=== PATIENT | female | born 1960 | race Caucasian/White ===

== ENCOUNTER 2022-06-01 12:18 | Emergency (ER) | payer MEDICARE, SELFPAY ==
[2022-06-01 12:21] VITALS: BP 109/61; PULSE 81; RESP 17; TEMP 36.1; O2SAT 94; BMI 32.8
--- NOTE | 2022-06-01 13:04 | EX.ED.DYSGE1 ---
HPI History of Present Illness Chief Complaint: Abn Labs Detail of Chief Complaint: low calcium Informant: patient Narrative Narrative: Patient sent according to her because of low calcium levels that were drawn 3 days ago. The patient's PCP tried to call her over the weekend when these results are available but were unable to discuss with her until today Wednesday morning, so she presents to the ER at their advice. She states she has been having some tingling in her hands but otherwise she feels fine. She states the blood work was done on Wednesday routinely as preparation for a routine outpatient visit today Wednesday. She denies all other ROS. She states she is on furosemide, she thinks for her blood pressure. She does not have major lower extremity edema issues although her ankles are a little swollen today. She does not have a history of heart problems or congestive heart failure. [facility] Medical History Diabetes type 2, controlled High blood pressure High cholesterol Home Medications Quinapril Hcl [Accupril] 10 mg PO BID 02/14/16 [History Last Taken Unknown] albuterol sulfate 2.5 mg/3 mL (0.083 %) solution for nebulization 2.5 mg inhalation Q4H PRN PRN Bronchodialation 02/14/16 [History Last Taken Unknown] albuterol sulfate 90 mcg/actuation aerosol inhaler (Ventolin HFA) 2 puff inhalation Q6H PRN PRN Bronchodialation 02/14/16 [History Last Taken Unknown] cholecalciferol (vitamin D3) 25 mcg (1,000 unit) chewable tablet 1,000 unit PO 02/14/16 [History Last Taken Unknown] hydroxyzine pamoate 50 mg capsule (Vistaril) 50 mg PO TID PRN PRN Anxiety 02/14/16 [History Last Taken Unknown] levothyroxine 150 mcg tablet 150 mcg PO DAILY 02/14/16 [History Last Taken Unknown] metronidazole 1 % topical gel (Metrogel) 1 applic topical BID 02/14/16 [History Last Taken Unknown] pravastatin 40 mg tablet 40 mg PO DAILY 02/14/16 [History Last Taken Unknown] sertraline 100 mg tablet 100 mg PO DAILY 02/14/16 [History Last Taken Unknown] trazodone 100 mg tablet 100 mg PO QHS 02/14/16 [History Last Taken Unknown] triamcinolone acetonide 0.1 % dental paste 1 applic topical BID 02/14/16 [History Last Taken Unknown] fluticasone fur. 100 mcg-umeclid 62.5 mcg-vilant 25 mcg inhalat.powder (Trelegy Ellipta) inhalation 06/01/22 [History Last Taken Unknown] Allergy/AdvReac Type Severity Reaction Status Date / Time No Known Allergies Allergy Verified 06/01/22 12:19 Surgical History (Updated 06/01/22 @ 12:53 by Jovani Lovelace) H/O thyroidectomy Social History Smoking Status: Former smoker ROS ROS ED Constitutional Constitutional ED: Denies chills or fever(s) Eyes Eyes: Denies change in vision or diplopia ENT ENT ED: Denies rhinorrhea or sore throat Cardiovascular Cardiovascular: Denies chest pain or palpitations Respiratory/Chest Respiratory/Chest: Denies cough or dyspnea Gastrointestinal Gastrointestinal: Denies abdominal pain, diarrhea, nausea or vomiting Genitourinary Genitourinary ED: Denies dysuria or hematuria Musculoskeletal Musculoskeletal: Denies back pain, muscle cramps, muscle spasms, muscle weakness, myalgias or neck pain Integumentary Denies abscess or rash Neurologic Neurologic: Reports paresthesias RUE and LUE; Denies headache(s) or weakness Psychiatric Psychiatric: Denies anxiety or suicidal thoughts EXAM Physical Exam Const Vital Signs: 06/01/22 12:21 06/01/22 12:55 Temperature 96.9 F L Temperature Source Temporal Pulse Rate 81 Respiratory Rate 17 Respiratory Effort Normal Respiratory Pattern Normal Blood Pressure 109/61 Blood Pressure Mean 77 Pulse Ox 94 Oxygen Delivery Method Room Air Positive well nourished and well developed Constitutional Narrative: Well-appearing. Conversive in full senses. Normal reflexes. No clonus. General Appearance ED: well developed and NAD HEENT Reports moist mucous membranes normocephalic and atraumatic Eyes PERRL and EOMs intact bilaterally Neck full ROM and supple Resp normal respiratory effort and clear to auscultation bilaterally Cardio regular rate, regular rhythm and no murmurs GI non-tender and non-distended Auscultation: normoactive bowel sounds Palpation: soft Back/Spine no CVA tenderness General Back: other FROM Extremity normal to inspection General Extremety ED: Negative for edema, pulses abnormal or tenderness General Extremity: Negative for edema or pulses abnormal Neuro oriented x3, CN's II-XII intact bilaterally and no sensory deficits noted Sensorium / Orientation: awake and alert Motor Exam: strength 5/5 throughout Skin no rashes or lesions noted and no wounds MDM MDM MDM Narrative Medical decision making narrative: I did perform a basic metabolic panel it does show a a calcium of 6.1. I did give the patient an infusion of calcium gluconate 2 g while she was waiting for this. She feels well afterwards. I discussed with Dr. Lozano who was on-call for her PCP Dr. Mills, she looked up some records and did verify that the patient is on furosemide 20 mg daily, this was because at 1 point she had some dyspnea. She had a vitamin D level that looked okay, but she does have a history of low calcium levels. 6 months ago it was 7.0, 6 months prior to that it was 6.8, today outpatient 5.8 and 6.1 here. Patient apparently has a history of hypothyroidism and hypoparathyroidism, the latter of which would explain her hypocalcemia. Dr. Lozano agrees that this is a known problem, and sees in the documentation that she was sent here to get an infusion of calcium given the low level, and they will follow-up with her as an outpatient regarding her hormone issues. Lab Data Attestation: I reviewed the patient's lab results. Labs: Laboratory Results - last 24 hr 06/01/22 13:11 Sodium 138 Potassium 3.8 Chloride 102 Carbon Dioxide 25.0 Anion Gap 11 BUN 10 Creatinine 0.54 L Estim Creat Clear Calc 80.47 Est GFR (MDRD) Af Amer 147 Est GFR (MDRD) Non-Af 122 BUN/Creatinine Ratio 18.7 Glucose 95 Calcium 6.1 L* Discharge Plan Triage Chief Complaint: Abn Labs ED Provider: Lokesh Lind Dx/Rx/DC Orders Clinical Impression: Hypocalcemia, Hypoparathyroidism Instructions: ED Hypocalcemia (Adult) Prescriptions: No Action albuterol sulfate 2.5 MG/3 ML Vial.Neb. 2.5 mg inhalation Q4H PRN PRN (Reason: Bronchodialation) pravastatin 40 MG tablet 40 mg PO DAILY sertraline 100 MG tablet 100 mg PO DAILY hydroxyzine pamoate [Vistaril] 50 MG capsule 50 mg PO TID PRN PRN (Reason: Anxiety) triamcinolone acetonide 1 APPLIC Tube 1 applic topical BID trazodone 100 MG tablet 100 mg PO QHS levothyroxine 150 MCG tablet 150 mcg PO DAILY albuterol sulfate [Ventolin HFA] 1 INHALER inhaler 2 puff inhalation Q6H PRN PRN (Reason: Bronchodialation) metronidazole [Metrogel] 60 GM Gel..Gram. 1 applic topical BID cholecalciferol (vitamin D3) 1,000 UNIT Tab.Chew 1,000 unit PO Quinapril Hcl [Accupril] 10 MG tablet 10 mg PO BID Trelegy Ellipta 100-62.5-25 mcg blister with device INHALATION Label Comments: INHALE ONE PUFF BY MOUTH ONCE DAILY DIRECTED Primary Care Provider: Rosangela Mills Referrals: Rosangela Mills MD [Primary Care Provider] - As soon as possible (Apparently [facility] canceled your appointment for today, call to see when they want you to have your appointment) Activity Restrictions/Additional Instructions: Until you see your doctor in follow-up, take Tums, 2 tablets, 3 times per day. Disposition Disposition: Home, Self Care
[2022-06-01 13:42] LABS: Anion Gap 11 (5-15); BUN 10 mg/dL (7-18); BUN/Creat Ratio 18.7 RATIO (10-20); Calcium,Total 6.1 mg/dL (8.5-10.1); Chloride 102 mmol/L (98-107); Creatinine, Serum 0.54 mg/dL (0.55-1.02); EST Glomerular Filtration Rate 122 mL/min (>60); Est Glom Filt Rate - Afr Amer 147 mL/min (>60); Estimated Creatinine Clearance 80.47 ml/min; Glucose 95 mg/dL (74-106); Potassium 3.8 mmol/L (3.5-5.1); Sodium Level 138 mmol/L (136-145)
[2022-06-01 14:19] VITALS: BP 138/84; PULSE 79; RESP 16; O2SAT 97
[2022-06-01 14:27] VITALS: BP 129/85; PULSE 75; RESP 18; TEMP 36.8; O2SAT 97
[2022-06-01 16:00] VITALS: BP 132/87; PULSE 82; RESP 18; O2SAT 98
== END 2022-06-01 16:16 | disposition home or self-care (01) ==
PROVIDERS: Emergency Provider Emergency Medicine; PCP Internal Medicine; Visit Provider Emergency Medicine
DX: E20.9 Hypoparathyroidism, unspecified (principal); E11.9 Type 2 diabetes mellitus without complications; E78.00 Pure hypercholesterolemia, unspecified; Z87.891 Personal history of nicotine dependence
CPT/HCPCS: 80048; 96360; 96361; 99283; A4216; J0610

== ENCOUNTER 2022-08-12 14:29 | Emergency (ER) | payer MEDICARE, SELFPAY ==
[2022-08-12 14:30] VITALS: BP 106/65; PULSE 64; RESP 18; TEMP 36.1; O2SAT 92
[2022-08-12 16:18] VITALS: RESP 18; BMI 32.9
[2022-08-12 16:32] LABS: Absolute Lymphocyte Count 2.38 X10^3/uL (0.83-4.51); Basophil# 0.06 X10^3/uL; Basophil% 0.5 % (0-1); Eosinophil# 0.24 X10^3/uL; Eosinophils% 2.1 % (0-5); Hematocrit 40.7 % (37-47); Hemoglobin 13.4 g/dL (12.0-15.0); Lymphocyte # 2.38 X10^3/ul (0.83-4.51); Lymphocyte % 20.9 % (19-41); Mean Corp Hgb Conc 32.9 g/dL (32-36); Mean Corpuscular Hgb 28.9 pg (27.0-32.0); Mean Corpuscular Volume 87.7 fL (81-99); Mean Platelet Vol. 9.1 fl (6.2-12.0); Monocyte# 0.63 X10^3/uL; Monocyte% 5.5 % (0-10); NRBC Flagged by Analyzer 0 % (0-5); Neutrophil # 8.04 X10^3/uL (2.7-7.7); Neutrophil % 70.6 % (47-70); Platelet Count 371 K/mm3 (150-450); RBC Distribution Width CV 14.4 % (11.6-14.6); RBC Distribution Width SD 45.7 fl (35.1-43.9); Red Blood Count 4.64 M/mm3 (4.2-5.4); White Blood Count 11.4 K/mm3 (4.4-11.0)
[2022-08-12 16:45] LABS: Anion Gap 5 (5-15); BUN 12 mg/dL (7-18); Calcium,Total 7.6 mg/dL (8.5-10.1); Chloride 101 mmol/L (98-107); Creatinine, Serum 0.52 mg/dL (0.55-1.02); EST Glomerular Filtration Rate 126 mL/min (>60); Est Glom Filt Rate - Afr Amer 152 mL/min (>60); Estimated Creatinine Clearance 82.48 ml/min; Glucose 96 mg/dL (74-106); Potassium 3.9 mmol/L (3.5-5.1); Sodium Level 137 mmol/L (136-145)
--- NOTE | 2022-08-12 16:56 | EDS_ITS ---
HPI History of Present Illness Chief Complaint: Abn Labs Informant: patient Narrative Narrative: Patient is a 62-year-old female with history of remote thyroidectomy presenting with hypocalcemia on outpatient labs. Patient notes she has had some mild diffuse tingling, numbness and generalized weakness recently. She states she has similar episode about 2 months ago and was told her calcium was low. She had been discharged and told to take Tums 3 times a day for her hypocalcemia. She states her primary care physician, Dr. Mills, states that it was too much and told her to cut back on that. Apparently patient outpatient lab work that showed a low calcium level and she came to the ER. Patient states she has COPD and she is chronically short of breath. Denies any recent change in her breathing. She notes for the the past few months she has had some increased lower extremity edema. Denies any other complaints at this time. [facility] Medical History Diabetes type 2, controlled High blood pressure High cholesterol Home Medications Quinapril Hcl [Accupril] 10 mg PO BID 02/14/16 [History Last Taken Unknown] albuterol sulfate 2.5 mg/3 mL (0.083 %) solution for nebulization 2.5 mg inhalation Q4H PRN PRN Bronchodialation 02/14/16 [History Last Taken Unknown] albuterol sulfate 90 mcg/actuation aerosol inhaler (Ventolin HFA) 2 puff inhalation Q6H PRN PRN Bronchodialation 02/14/16 [History Last Taken Unknown] cholecalciferol (vitamin D3) 25 mcg (1,000 unit) chewable tablet 1,000 unit PO DAILY 02/14/16 [History Last Taken Unknown] hydroxyzine pamoate 50 mg capsule (Vistaril) 50 mg PO TID PRN PRN Anxiety 02/14/16 [History Last Taken Unknown] levothyroxine 150 mcg tablet 150 mcg PO DAILY 02/14/16 [History Last Taken Unknown] metronidazole 1 % topical gel (Metrogel) 1 applic topical BID 02/14/16 [History Last Taken Unknown] pravastatin 40 mg tablet 40 mg PO DAILY 02/14/16 [History Last Taken Unknown] sertraline 100 mg tablet 100 mg PO DAILY 02/14/16 [History Last Taken Unknown] trazodone 100 mg tablet 100 mg PO QHS 02/14/16 [History Last Taken Unknown] triamcinolone acetonide 0.1 % dental paste 1 applic topical BID 02/14/16 [History Last Taken Unknown] fluticasone fur. 100 mcg-umeclid 62.5 mcg-vilant 25 mcg inhalat.powder (Trelegy Ellipta) 1 ea inhalation DAILY 06/01/22 [History Last Taken Unknown] calcium carbonate 600 mg-vitamin D3 10 mcg (400 unit) tablet (Calcium with Vitamin D) 1 tab PO TID #90 tabs 08/12/22 [Rx Last Taken Unknown] Allergy/AdvReac Type Severity Reaction Status Date / Time No Known Allergies Allergy Verified 08/12/22 14:32 Surgical History (Updated 08/12/22 @ 19:[address] Alyce Keane DO) H/O thyroidectomy Social History Smoking Status: Former smoker ROS ROS ED Constitutional Constitutional ED: Denies chills or fever(s) Eyes Eyes: Denies change in vision Cardiovascular Cardiovascular: Denies chest pain, palpitations or paroxysmal nocturnal dyspnea Respiratory/Chest Respiratory/Chest: Reports dyspnea, dyspnea on exertion and other Details: Reports chronic shortness of breath, no acute change ; Denies cough or paroxysmal nocturnal dyspnea Gastrointestinal Gastrointestinal: Denies abdominal pain, nausea or vomiting Musculoskeletal Musculoskeletal: Reports myalgias; Denies arthralgias Integumentary Denies rash Neurologic Neurologic: Reports paresthesias and weakness Psychiatric Psychiatric: Denies anxiety EXAM Physical Exam Const Vital Signs: 08/12/22 16:18 08/12/22 16:18 08/12/22 18:45 Pulse Rate 70 Respiratory Rate 18 18 Respiratory Effort Normal Respiratory Pattern Normal Blood Pressure 135/73 H Blood Pressure Mean 93 Pulse Ox 91 Oxygen Delivery Method Room Air Positive well nourished and well developed General Appearance ED: well developed and NAD HEENT Reports moist mucous membranes Eyes PERRL and EOMs intact bilaterally Neck supple Chest Wall inspection of chest normal and palpation of chest normal Resp normal respiratory effort Auscultation: diminished lung sounds; Negative for rhonchi or wheezes Cardio regular rate, regular rhythm and no murmurs GI normal to inspection, nondistended, normoactive bowel sounds Extremity normal to inspection General Extremety ED: Negative for edema or tenderness General Extremity: Negative for edema Neuro oriented x3 Neuro Narrative: No myoclonus appreciated. Negative [place] sign. No muscle spasms or fasciculations appreciated on exam. Sensorium / Orientation: alert Motor Exam: Negative for general weakness Psych mental status grossly normal Skin no rashes or lesions noted and no wounds MDM MDM MDM Narrative Medical decision making narrative: Patient is evaluated for concern of hypocalcemia on outpatient labs. She is reporting some mild muscle spasms and paresthesias but has a normal neurologic exam at this time. She is breathing comfortably. States she is chronically short of breath but denies any acute change in this. She has a history of thyroidectomy and likely has hypoparathyroid from that. Her electrolytes are largely normal including her magnesium except for her calcium which is mildly low at 7.6. Given that she is not critically low, I do not think that she requires admission or IV calcium supplementation at this time. Patient does report that she has had some mild leg swelling for the past month or so. In the setting of her chronic shortness of breath I did obtain a venous duplex which is negative. She clinically does not appear fluid overloaded I do not think further work-up is indicated emergently. Case is discussed with her physician, Dr. Olivas. She states that her calcium was lower on Wednesday and is happy to see that is improving. Recommend she increase her home calcium regiment. Patient currently states she is taking an [id number] supplement 2 times a day. Patient is instructed to start taking it 3 times a day (she is given a prescription for this). Counseled to follow-up outpatient. Her PCP has already also ordered parathyroid hormone labs and other work-up for the hypocalcemia and feels that it is associated with hypoparathyroid from her remote thyroidectomy. Patient is given return precautions. Is discharged home in stable condition. Lab Data Attestation: I reviewed the patient's lab results. Labs: Laboratory Results - last 24 hr 08/12/22 08/12/22 08/12/22 16:20 16:20 16:20 WBC 11.4 H RBC 4.64 Hgb 13.4 Hct 40.7 MCV 87.7 MCH 28.9 MCHC 32.9 RDW Std Deviation 45.7 H RDW Coeff of [place] 14.4 Plt Count 371 MPV 9.1 Immature Gran % (Auto) 0.400 Neut % (Auto) 70.6 H Lymph % (Auto) 20.9 [place] % (Auto) 5.5 Eos % (Auto) 2.1 Baso % (Auto) 0.5 Absolute Neuts (auto) 8.0 H Absolute Lymphs (auto) 2.38 Nucleated RBC % 0 Sodium 137 Potassium 3.9 Chloride 101 Carbon Dioxide 31.0 Anion Gap 5 BUN 12 Creatinine 0.52 L Estim Creat Clear Calc 82.48 Est GFR (MDRD) Af Amer 152 Est GFR (MDRD) Non-Af 126 BUN/Creatinine Ratio 23.0 H Glucose 96 Calcium 7.6 L Magnesium 1.9 Radiography Diagnostic Testing: Clinical Impression(s) from Imaging Studies Venous Duplex 08/12/22 17:17 IMPRESSION: No sonographic evidence of deep venous thrombosis. Electronically Signed: Chato Ji MD at 18:44 EDT Reading Location ID and State: [address] [place] [address] Tel , Service support , Discharge Plan Triage Chief Complaint: Abn Labs ED Provider: Alyce Keane Dx/Rx/DC Orders Clinical Impression: Hypocalcemia, History of thyroidectomy Instructions: ED Hypocalcemia (Adult) Prescriptions: New calcium carbonate-vitamin D3 [Calcium with Vitamin D] 600 mg-10 mcg (400 unit) tablet 1 tab PO TID Qty: 90 0RF No Action albuterol sulfate 2.5 MG/3 ML solution for nebulization 2.5 mg inhalation Q4H PRN PRN (Reason: Bronchodialation) pravastatin 40 MG tablet 40 mg PO DAILY sertraline 100 MG tablet 100 mg PO DAILY hydroxyzine pamoate [Vistaril] 50 MG capsule 50 mg PO TID PRN PRN (Reason: Anxiety) triamcinolone acetonide 1 APPLIC paste 1 applic topical BID trazodone 100 MG tablet 100 mg PO QHS levothyroxine 150 MCG tablet 150 mcg PO DAILY albuterol sulfate [Ventolin HFA] 1 INHALER inhaler 2 puff inhalation Q6H PRN PRN (Reason: Bronchodialation) metronidazole [Metrogel] 60 GM gel 1 applic topical BID cholecalciferol (vitamin D3) 1,000 UNIT tablet,chewable 1,000 unit PO DAILY Quinapril Hcl [Accupril] 10 MG tablet 10 mg PO BID Trelegy Ellipta 100-62.5-25 mcg blister with device 1 ea INHALATION DAILY Label Comments: INHALE ONE PUFF BY MOUTH ONCE DAILY DIRECTED Primary Care Provider: Rosangela Mills Referrals: Rosangela Mills MD [Primary Care Provider] - Activity Restrictions/Additional Instructions: Lease follow-up with your primary care doctor next week for recheck of your labs. Take the calcium supplement prescribed 3 times a day. Disposition Disposition: Home, Self Care Discharge Date/Time: 08/12/22 19:37
--- NOTE | 2022-08-12 17:17 | US_ITS ---
INDICATION: BILATERAL ANKLE SWELLING X 2 MONTHS EXAMINATION: Ultrasound US Venous Duplex LE Bilat Complete TECHNIQUE: Miller scale, pulse wave, and color flow Doppler imaging was performed of the lower extremity venous system. The bilateral greater saphenous, common femoral, femoral, posterior tibial, peroneal and popliteal veins were interrogated. COMPARISON: None. FINDINGS: There is normal compression, augmentation, and signal throughout the visualized deep lower extremity veins. US/Venous Duplex Imag/James Extrem IMPRESSION: No sonographic evidence of deep venous thrombosis. Electronically Signed: Chato Ji MD at 18:44 EDT ,
[2022-08-12 17:42] LABS: Magnesium 1.9 mg/dL (1.6-2.6)
[2022-08-12 18:45] VITALS: BP 135/73; PULSE 70; RESP 18; O2SAT 91
== END 2022-08-12 19:37 | disposition home or self-care (01) ==
PROVIDERS: Emergency Provider Emergency Medicine; PCP Internal Medicine; Visit Provider Emergency Medicine
DX: E83.51 Hypocalcemia (principal); E11.9 Type 2 diabetes mellitus without complications; E78.00 Pure hypercholesterolemia, unspecified; Z87.891 Personal history of nicotine dependence; R20.2 Paresthesia of skin; R06.02 Shortness of breath
CPT/HCPCS: 80048; 82330; 83735; 85025; 93970; 99283; A4216